=== PATIENT | male | born 1970 | race Caucasian/White ===

== ENCOUNTER 2022-09-02 17:27 | Emergency (ER) | payer BC, SELFPAY ==
--- NOTE | 2022-09-02 17:43 | ECG_ITS ---
Measurements Intervals [place] Rate: 87 P: 32 MA: 151 QRS: 58 QRSD: 102 T: 20 QT: 337 QTc: 407 Interpretive Statements SINUS RHYTHM NONSPECIFIC T-WAVE ABNORMALITY NO PREVIOUS ECG AVAILABLE FOR COMPARISON Electronically Signed On 09-05-2022 15:01:10 CARE MANAGEMENT COORDINATOR by Alex Kelly M.D.
[2022-09-02 17:46] VITALS: BP 189/121; PULSE 88; RESP 16; TEMP 37.2; O2SAT 100
[2022-09-02 17:50] VITALS: BP 191/111
--- NOTE | 2022-09-02 17:50 | ED.CHESTPAIN ---
HPI - Chest Pain General Chief Complaint: Chest Pain Stated Complaint: cp Time Seen by Provider: 09/02/22 17:45 Source: patient Mode of arrival: ambulatory Limitations: no limitations History of Present Illness HPI narrative: Mr. Treviño is a 52-year-old male patient presenting to clinic today with complaints of left upper sided chest pain since 4:00 a.m. this afternoon. He reports that the pain was initially sharp but now it is a dull aching pain to the left side of his chest. He reports that the pain is worse with inspiration. Blood pressure is elevated in the clinic. He also reports that he had some dizziness, headache, and felt as though he was going to pass out when this episode occurred. Blood pressure is 189/121 in the clinic and 191/110. He denies any radiation of the chest pain currently. He states he does get frequent intermittent chest pain at times over the last several years that have been sharp but have gone away within 30 seconds however this pain has been pretty constant. Related Data Home Medications Medication Instructions Recorded Confirmed No Home Medications 09/02/22 09/02/22 Allergies Allergy/AdvReac Type Severity Reaction Status Date / Time No Known Allergies Allergy Verified 09/02/22 17:53 Review of Systems Review of Systems: Pertinent positives per HPI. Patient denies any fever, chills, rash, cough, runny nose, sore throat, shortness of breath, palpitations, nausea, vomiting, diarrhea, constipation, abdominal pain, or any urinary issues. PMFSH Comments At the time of my signature, I reviewed and agree with the nursing past medical, surgical, social, and family history. There is no relevant family history pertinent to the patient complaint. Exam Narrative: General: Well-developed, obese, in no apparent distress Head: Normocephalic, atraumatic. Cardio: Regular rate and rhythm, s1 and s2 normal, no murmur appreciated. Resp: Clear to auscultation bilaterally, no rhonchi, rales, wheezing or rubs. Extremities: No deformity, no edema, no cyanosis, capillary refill less than 2 seconds, peripheral pulses palpable and strong. Integumentary: [place], warm, and dry, intact without lesion, no rashes. Course Course Emergency Course: Portions of this record may have been created with voice recognition software. Level of Care: Express Care Visit Vital Signs Vital signs: Vital Signs Temperature 37.2 C 12/09/22 17:46 Pulse Rate 88 09/02/22 17:46 Respiratory Rate 16 09/02/22 17:46 Blood Pressure 189/121 H 09/02/22 17:46 Pulse Oximetry 100 09/02/22 17:46 Oxygen Delivery Room Air 09/02/22 17:46 Temperature 37.2 C 09/02/22 17:46 Pulse Rate 88 09/02/22 17:46 Respiratory Rate 16 09/02/22 17:46 Blood Pressure 189/121 H 09/02/22 17:46 Pulse Oximetry 100 09/02/22 17:46 Oxygen Delivery Room Air 09/02/22 17:46 Vital signs reviewed Transfer Transfered to: [facility]: [facility] Transfer rationale: chest pain rule out-acute coronary syndrome-hypertension urgency Accepting physician: Be MCDOWELL-C Transfer comments: TRANSFER VIA ALS MDM - Chest Pain MDM Narrative Medical decision making narrative: At the time of visit patient is resting comfortably on the exam table. His EKG shows sinus rhythm at the 87 beats per minute with a nonspecific T-wave abnormality. He complains of headache, dizziness, and chest pain. Recommend transfer to the ED for further workup as his blood pressure is 189/121. Contacted Be MCDOWELL at [facility] and he accepts patient for transfer Differential Diagnosis Differential diagnosis: Likely atypical chest pain, st elevation myocardial infarction, costochondritis, chest pain and other ( hypertension urgency) ECG Data EKG #1: Attestation: I personally reviewed and interpreted this ECG as follows: ECG completion date: 09/02/22 ECG completion time: 17:43 Prior ECG tracings: not availa
== END 2022-09-02 17:57 | disposition short-term general hospital (02) ==
PROVIDERS: Emergency Provider Nurse Practitioner Family
DX: I16.0 Hypertensive urgency (principal); R07.9 Chest pain, unspecified; R42 Dizziness and giddiness; R51.9 Headache, unspecified
CPT/HCPCS: 93005; 99205; G0463

== ENCOUNTER 2022-09-02 18:13 | Emergency (ER) | payer BC, SELFPAY ==
[2022-09-02] VITALS (24 sets, daily range): BP systolic 161–210; BP diastolic 102–164; PULSE 67–88; RESP 12–26; TEMP 36.9; O2SAT 93–100
--- NOTE | ~2022-09-02 | XR_ITS ---
EXAMINATION: XR chest 2V 09/02/2022 18:49 INDICATION: Chest pain PROCEDURE: 2 view chest COMPARISON: No prior studies for comparison. FINDINGS: The lungs are clear. The cardiomediastinal silhouette is within normal limits. There are no pleural effusions. There is no pneumothorax suspected. IMPRESSION: 1: NO ACUTE CARDIOPULMONARY DISEASE. Reviewed, dictated and finalized at location A. CTION COORDINATION POWER ENGINEER
--- NOTE | ~2022-09-02 | CT_ITS ---
EXAMINATION: CT brain wo con DATE: 09/02/2022 20:03 INDICATION: Markedly elevated blood pressure. TECHNIQUE: Computed tomography (CT) of the head was performed without intravenous contrast. The dose- length product was 681.00 mGy-cm. Automated exposure control and iterative reconstruction technique w ere employed. COMPARISON: None FINDINGS: There is a hyperdense left frontal lobe mass measuring 2.5 x 2.1 x 2.3 cm. There is periphe ral calcifications with surrounding vasogenic edema. There is midline shift measuring 2-3 mm. No vent riculomegaly. Basilar cisterns are patent. No acute hemorrhage. Paranasal sinuses and mastoids are pn eumatized. IMPRESSION: 1. Abnormal left frontal lobe mass measuring 2.5 cm which is hyperdense with peripheral calcification , possibly extra-axial. Differential diagnosis includes atypical meningioma, glioma, lymphoma and met astatic disease. Recommend follow-up clinical evaluation with MRI with contrast. There is surrounding vasogenic edema with midline shift to the right measuring 2-3 mm. Reviewed, dictated and finalized at location A. T SUPERINTENDENT CAUSTIC CRESYLATE IMPRESSION: 1. Abnormal left frontal lobe mass measuring 2.5 cm which is hyperdense with pe ripheral calcification, possibly extra-axial. Differential diagnosis includes a typical meningioma, glioma, lymphoma and metastatic disease. Recommend follow-u p clinical evaluation with MRI with contrast. There is surrounding vasogenic ed renu with midline shift to the right measuring 2-3 mm.
--- NOTE | ~2022-09-02 | CT_ITS ---
EXAMINATION: CTA chest DATE: 09/02/2022 20:23 [employer] INDICATION: Elevated blood pressure. Chest pain. Pulse differential. TECHNIQUE: Computed tomographic angiography (CTA) of the chest was performed with 100 mL Omnipaque-35 0 intravenous contrast. The dose-length product was 769.44 mGy-cm. Maximum intensity projection 3D-re constructions of the aorta and other arteries were constructed by the technologist on a separate work station. COMPARISON: None. FINDINGS: Aorta is within normal limits without evidence for aneurysm or dissection. No significant p leural or pericardial effusion. No thoracic lymphadenopathy. Thyroid gland is normal. There is a 3 mm pleural-based left lower lobe nodule, likely benign. No focal airspace consolidation. No endobronchi al lesions. No pneumothorax. There are bilateral adrenal nodules, most likely benign adenomas. There is a complex heterogeneous 2 cm right renal mass. There is a hyperdense lesion posterior margin of th e upper aspect of the right kidney measuring 3.2 cm, nonspecific. There are gallstones. Fatty infiltr ation of the liver. IMPRESSION: 1. No significant vascular abnormality identified. 2: Complex 2 cm right renal mass which appears to contain macroscopic fat, possibly benign renal ang iomyolipoma. 3: Hyperdense right renal lesion measuring 3.2 cm most likely hyperdense proteinaceous or hemorrhagi c cyst. Recommend follow-up evaluation with MRI with/without contrast. 4: Multiple small low-density masses of the adrenal glands, most likely benign adenomas. This would also be better evaluated with MRI. Reviewed, dictated and finalized at location A. TH SCIENCES DEAN IMPRESSION: 1. No significant vascular abnormality identified. 2: Complex 2 cm right renal mass which appears to contain macroscopic fat, pos sibly benign renal angiomyolipoma. 3: Hyperdense right renal lesion measuring 3.2 cm most likely hyperdense prote inaceous or hemorrhagic cyst. Recommend follow-up evaluation with MRI with/with out contrast. 4: Multiple small low-density masses of the adrenal glands, most likely benign adenomas. This would also be better evaluated with MRI.
--- NOTE | 2022-09-02 18:20 | ECG_ITS ---
Measurements Intervals [place] Rate: 76 P: 19 UT: 163 QRS: 42 QRSD: 95 T: 19 QT: 345 QTc: 390 Interpretive Statements SINUS RHYTHM NORMAL ECG NO PREVIOUS ECG AVAILABLE FOR COMPARISON Electronically Signed On 09-03-2022 8:32:13 KITCHEN CHEF by Alex Kelly M.D.
[2022-09-02 18:37] LABS: Basophils Absolute Auto 0.1 K/mm3 (0.0-0.1); Basophils Percent Auto 0.9 % (0.2-1.2); Eosinophils Absolute Auto 0.2 K/mm3 (0-0.3); Eosinophils Percent Auto 2.2 % (0-4.4); Hematocrit 43.4 % (42.0-52.0); Hemoglobin 15.7 g/dL (14.0-18.0); Immature Granulocyte Absolute 0.04 K/mm3 (0.00-0.031); Immature Granulocyte Percent A 0.5 % (0-0.5); Lymphocytes Absolute Auto 2.04 K/mm3 (0.9-3.2); Lymphocytes Percent Auto 25.2 % (18.3-44.2); Mean Corpuscular HGB Conc 36.2 g/dl (32-36); Mean Corpuscular Hemoglobin 32.5 pg (26-34); Mean Corpuscular Volume 89.9 fl (80-100); Mean Platelet Volume 9.1 fl (7.4-10.4); Monocytes Absolute Auto 0.7 K/mm3 (0.1-0.6); Monocytes Percent Auto 8.5 % (2.6-8.5); Neutrophils Absolute Auto 5.1 K/mm3 (1.3-6.7); Neutrophils Percent Auto 62.7 % (45.5-73.1); Platelet Count Result 232 k/mm3 (150-375); Red Blood Count 4.83 M/mm3 (4.6-6.20); White Blood Count 8.1 K/mm3 (4.5-10.0)
[2022-09-02 18:47] LABS: Partial Thromboplastin Time 23.4 SECONDS (22.3-36.8)
[2022-09-02 18:48] LABS: Alanine Aminotransferase 22 U/L (6-50); Albumin Level 4.5 g/dL (3.5-5.1); Alkaline Phosphatase 115 U/L (38-126); Anion Gap 6 mmol/L (8-16); Aspartate Amino Transferase 24 U/L (17-59); Bilirubin,Total 1.1 mg/dL (0.2-1.3); Blood Urea Nitrogen 17 mg/dL (9-20); Calcium 8.7 mg/dL (8.4-10.2); Carbon Dioxide 31 mmol/L (22-30); Chloride 104 mmol/L (98-107); Estimated CRCL calculation 70 ml/min; Estimated Glomerular Filt Rate > 60; Glucose 97 mg/dL (65-110); Lipase 251 U/L (23-300); Potassium 3.4 mmol/L (3.4-5.0); Prothrombin Time 12.7 Seconds (11.1-14.7); Sodium 141 mmol/L (137-145)
[2022-09-02 18:59] LABS: Troponin I < 0.012 ng/mL (0.000-0.034)
--- NOTE | 2022-09-02 19:30 | ED.CHESTPAIN ---
HPI - Chest Pain General Chief Complaint: Chest Pain Stated Complaint: chest pain Time Seen by Provider: 09/02/22 19:20 History of Present Illness HPI narrative: Patient is a 52-year-old male here for evaluation of chest pain today. Patient reports two distinct twinges of discomfort in his chest lasting a second or 2 before resolving without intervention. Patient presented to an urgent care facility and was sent here because his blood pressure was markedly elevated. Patient tells me that his home readings on his mother's blood pressure cuff are frequently in the 200s systolic, however he has never seen a primary care doctor or been on antihypertensives. He denies any weakness, confusion, visual changes, nausea, vomiting, shortness of breath, leg swelling. Related Data Allergies Allergy/AdvReac Type Severity Reaction Status Date / Time No Known Allergies Allergy Verified 09/02/22 18:14 Review of Systems Review of Systems: Gen: Denies fevers or chills Eyes: Denies eye pain or visual change ENT: Denies congestion Respiratory: Denies shortness of breath or cough CV: Reports chest pain GI: Reports abdominal pain nausea, emesis or diarrhea denies burning, urgency, frequency or hematuria Musculoskeletal: Denies back pain or muscle pain Neuro: Denies numbness, tingling, weakness or focal weakness Skin: Denies rash 10 point review of systems negative, other than as per history of present illness, past medical history and other positives and review of systems Exam Narrative: APPEARANCE: Well appearing, no pain in distress, well-nourished. Head: Normocephalic and atraumatic. EYES: PERRLA/EOMI, conjunctivae clear NOSE: No nasal drainage EARS: External ear normal in appearance THROAT: Oropharynx is clear. Mucous membranes are moist. NECK: Supple. No adenopathy, no masses. RESPIRATORY: Airway patent, respirations nonlabored. Clear to auscultation bilaterally, no rales, rhonchi, wheezing. CARDIOVASCULAR: 2+ radial pulse on L, 1+ radial pulse on R. Regular rate and rhythm without murmurs, rubs, or gallops. ABDOMINAL: Normoactive bowel sounds. Soft, nontender, nondistended. No rebound tenderness or guarding. MUSCULOSKELETAL: Extremities are warm and well-perfused. Moves all extremities well. No edema. NEURO: Normal speech. No focal neurologic deficits. SKIN: Skin is warm and dry. No rashes. PSYCHIATRIC: Normal affect/mood. Course Vital Signs Vital signs: Vital Signs Temperature 98.4 F 09/02/22 18:16 Pulse Rate 83 09/02/22 18:16 Respiratory Rate 18 09/02/22 18:16 Pulse Oximetry 98 09/02/22 18:16 Temperature 98.4 F 09/02/22 18:16 Pulse Rate 70 09/02/22 21:31 Respiratory Rate 17 09/02/22 21:31 Blood Pressure 179/113 H 09/02/22 21:31 Pulse Oximetry 95 09/02/22 21:31 MDM - Chest Pain MDM Narrative Medical decision making narrative: 52-year-old male sent here from urgent care for evaluation of chest pain and markedly elevated blood pressures, sent for CT head and imaging of his chest. Patient's blood pressure is 210/129, vital signs otherwise normal. Noncontrasted brain CT shows evidence of a left frontal lobe hyperdense mass; differential including meningioma, glioma or metastatic disease. Recommended contrasted MRI study for follow-up. Spoke with Dr. Olivares, neurosurgery, who agrees with outpatient MRI and follow-up; this is likely an incidental finding and unrelated to his BP today. CTA of the chest shows numerous lesions on the right kidney; likely cysts and is also recommending follow-up abdominal MRI. Spoke with Dr. Carpio, primary care physician food production supervisor regarding patient, agrees with plan for starting lisinopril and outpatient abdominal MRI for further characterization of the renal lesions. Patient is stable for discharge at this time, symptoms of chest pain have resolved at time of my evaluation and he is requesting to go home. His blood pressure did improve after labetalol in the ED.
[2022-09-02 19:57] LABS: Troponin I < 0.012 ng/mL (0.000-0.034)
[2022-09-02] MEDS: LABETALOL HCL INJ 100 MG/20 ML VIAL 20 MG IV PUSH (20:37)
[2022-09-02 22:16] LABS: Appearance Urine Clear (Clear); Bilirubin Urine Negative (Negative); Blood Urine Negative (Negative); Color Urine Yellow (Yellow); Glucose Urine UA Negative (Negative); Ketones Urine Negative (Negative); Leukocyte Esterase Ur Negative LEU/UL (Negative); Nitrate Urine Negative (Negative); Protein Urine Trace mg/dL (Negative); Urobilinogen Urine 0.2 mg/dL (<2.0)
[2022-09-02 22:23] LABS: RBC Urine 0-2 /hpf (0-2); WBC Urine 0-3 /hpf
[2022-09-02 22:38] LABS: Add Urine Microscopic? YES
== END 2022-09-02 21:45 | disposition home or self-care (01) ==
PROVIDERS: General Practice; Emergency Provider Physician Assistant
DX: R07.9 Chest pain, unspecified (principal); G93.89 Other specified disorders of brain; N28.89 Other specified disorders of kidney and ureter; R03.0 Elevated blood-pressure reading, without diagnosis of hypertension
CPT/HCPCS: 36415; 70450; 71046; 71275; 80053; 81001; 83690; 84484; 85025; 85610; 85730; 93005; 96374; 99284; Q9967

== ENCOUNTER 2022-09-22 07:44 | Outpatient (CLI) | payer BC, SELFPAY ==
--- NOTE | ~2022-09-22 | MR_ITS ---
MRI of the brain Clinical History: Tumor Technique: Axial and sagittal T1-weighted images were acquired. These were followed by axial T2-weigh rivas, diffusion weighted, gradient, and FLAIR images. Following intravenous administration of 20 cc Mu ltiHance gadolinium, T1-weighted fat-sat imaging was performed in the axial, coronal, and sagittal pl anes. COMPARISON: Head CT dated 09/02/2022 Findings: There is an enhancing dural based mass at the left inferior frontal convexity, measuring 2. 5 x 1.8 x 2.3 cm in extent. This correlates with the lesion seen on recent CT scan, and is consistent with meningioma. There is mild surrounding vasogenic edema in the adjacent left frontal lobe. There is an additional tiny enhancing meningioma at the right frontal region (series 8 image 15). Minimal b ackground chronic white matter changes are noted. No intracranial hemorrhage identified. No acute inf arct seen. Ventricles and subarachnoid spaces are otherwise unremarkable. Orbits are unremarkable. There is mild bilateral ethmoid sinus disease. Remaining paranasal sinuses and mastoid air shows are clear. Major intracranial flow voids are intact. Sagittal midline structures are intact. IMPRESSION: 2.5 x 1.8 x 2.3 cm meningioma at the left frontal convexity, which correlates with recent CT finding. There is mild surrounding vasogenic edema. Additional tiny 4 mm right frontal meningioma. Reviewed, dictated and finalized at [facility]. [facility] HOST/HOSTESS IMPRESSION: 2.5 x 1.8 x 2.3 cm meningioma at the left frontal convexity, which correlates w ith recent CT finding. There is mild surrounding vasogenic edema. Additional tiny 4 mm right frontal meningioma.
== END 2022-09-22 07:45 | disposition home or self-care (01) ==
PROVIDERS: Visit Provider Neurological Surgery
DX: G93.89 Other specified disorders of brain (principal)
CPT/HCPCS: 70553; A9577

== ENCOUNTER 2022-10-18 10:33 | Emergency (ER) | payer BC, SELFPAY ==
[2022-10-18] VITALS (24 sets, daily range): BP systolic 180–219; BP diastolic 108–124; PULSE 66–83; RESP 13–24; TEMP 36.5; O2SAT 93–100
--- NOTE | 2022-10-18 12:24 | ED.RECABL ---
HPI - Recheck/Abnormal Lab/Rx General Chief Complaint: Recheck/Abnormal Lab/Rx Stated Complaint: high BP Time Seen by Provider: 10/18/22 12:06 History of Present Illness HPI narrative: Patient is a 52-year-old male with a history of hypertension, anxiety presenting with high blood pressure. Patient states that he went to his PCP this morning and was found to have blood pressure with systolics over 200. He was advised by the GUIDANCE DIRECTOR to come to the ER to have it lowered. States that he did not take his morning medications. He states that he feels fantastic. He denies any complaints whatsoever. No headache, numbness or weakness, vision changes, chest pain, shortness of breath, nausea or vomiting, abdominal pain, leg swelling. Related Data Home Medications Medication Instructions Recorded Confirmed alprazolam 0.25 mg tablet 0.25 mg PO BID PRN Anxiety 10/18/22 amlodipine 2.5 mg tablet 2.5 mg PO DAILY 10/18/22 fluoxetine 20 mg capsule 20 mg PO DAILY 10/18/22 losartan 100 mg tablet 100 mg PO DAILY 10/18/22 lovastatin 20 mg tablet 20 mg PO QPM 10/18/22 Allergies Allergy/AdvReac Type Severity Reaction Status Date / Time No Known Allergies Allergy Verified 10/18/22 10:39 Review of Systems Review of Systems: All systems reviewed & are unremarkable except as noted in HPI and below PMFSH Past Medical History Medical History HTN (hypertension) Surgical History Surgical History No pertinent past surgical history Family History Family History Other Diabetes mellitus Heart disease Hypertension Social History Social History Smoking status: Never smoker Alcohol intake: never Substance use: never Substance use type: does not use Lack of Transportation: No Lack of Food: Never True Current Housing: I Have Housing Concerned About Future Housing: No Difficulty Paying Gas/Electric Bills: No Difficulty Paying for Meds: No Currently Unemployed: No Education: Decline to Answer Difficulty w/ Childcare or Family Care: No Exam Narrative: GENERAL: Well-appearing, well-nourished, and in no acute distress. HEAD: Normocephalic, atraumatic. EYES: PERRLA and EOMI. ENT: Nares clear, no rhinorrhea or epistaxis. Mucous membranes moist. NECK: Supple. CHEST: Clear to auscultation. No respiratory distress. HEART: Regular rate and rhythm. No murmur heard. Normal peripheral pulses. ABDOMEN: Soft, nontender, nondistended, normal active bowel sounds. EXTREMITIES: Normal range of motion. No edema. SKIN: Warm, dry, no rash. NEURO: No focal deficits. Alert and oriented x3. PSYCH: Normal mood and affect. Course Vital Signs Vital signs: Vital Signs Temperature 97.7 F 10/18/22 10:34 Pulse Rate 74 10/18/22 10:34 Respiratory Rate 18 10/18/22 10:34 Blood Pressure 210/108 H 10/18/22 10:34 Pulse Oximetry 97 10/18/22 10:34 Oxygen Delivery Room Air 10/18/22 10:34 Temperature 97.7 F 10/18/22 10:34 Pulse Rate 83 10/18/22 14:01 Respiratory Rate 22 H 10/18/22 14:01 Blood Pressure 207/120 H 10/18/22 14:01 Pulse Oximetry 95 10/18/22 14:01 Oxygen Delivery Room Air 10/18/22 10:34 MDM - Recheck/Abnormal Lab/Rx MDM Narrative Medical decision making narrative: Patient is a 52-year-old male presenting with asymptomatic hypertension from his PCPs office. Patient is hypertensive in the 200s over 100s. Vitals otherwise within normal limits. Patient denies any complaints whatsoever. He states that he feels fantastic. It appears that his PCP increased his antihypertensives today and patient states that he has not taken any of his antihypertensive so far today. He was given his morning dose. He continues to be hypertensive and asymptomatic. Patient has
[2022-10-18] MEDS: LOSARTAN POTASSIUM 100 MG TABLET PO (12:51)
[2022-10-18] MEDS: amLODIPine BESYLATE 2.5 MG TABLET PO (12:51)
== END 2022-10-18 14:25 | disposition home or self-care (01) ==
PROVIDERS: Emergency Provider Emergency Medicine; PCP Family Medicine
DX: I10 Essential (primary) hypertension (principal)
CPT/HCPCS: 99283; A9270

== ENCOUNTER 2022-12-25 10:24 | Outpatient (CLI) | payer BC, SELFPAY ==
--- NOTE | ~2022-12-25 | MR_ITS ---
EXAMINATION: MR brain/brain stem wo/w con DATE: 12/25/2022 11:04 INDICATION: Brain mass. TECHNIQUE: Magnetic resonance imaging (MRI) of the brain and brainstem was performed without and with 19 mL MultiHance intravenous contrast. COMPARISON: Brain MRI 09/22/2022, head CT 09/02/2022 FINDINGS: There is no acute ischemic infarct or acute hemorrhage. In the left frontal temporal region , there is a 2.7 x 2.4 x 2.3 cm enhancing extra-axial mass with dural tails. Anterior to right fronta l lobe, there is a 7 mm enhancing extra-axial mass. At the anterior rim of the sella, there is an 8 m m enhancing extra-axial mass. Inferior to right frontal lobe, there is a 5 mm enhancing extra-axial m ass. Inferior to the frontal lobes at the midline, there is a 4 mm enhancing extra-axial mass. These findings are consistent with meningiomas. There is vasogenic edema in left frontal lobe adjacent to t he mass. There are scattered areas of nonspecific increased T2-weighted signal intensity in the cereb ral white matter and midbrain, which is within normal limits for the patient's age. There is a small old infarct in right cerebellum. There is an old lacunar infarct in right thalamus. The ventricles a re normal in size. The orbits are normal. There is mild mucosal thickening in the paranasal sinuses. The mastoid air cells are normal. IMPRESSION: 1. Five enhancing extra-axial masses measuring up to 2.7 cm, stable from 09/22/2022, consistent with meningiomas. 2. 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 Reviewed, dictated and finalized at location A. IMPRESSION: 1. Five enhancing extra-axial masses measuring up to 2.7 cm, stable from 2021, consistent with meningiomas. 2. 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
== END 2022-12-25 10:25 | disposition home or self-care (01) ==
PROVIDERS: PCP Family Medicine; Visit Provider Neurological Surgery
DX: G93.89 Other specified disorders of brain (principal); R22.0 Localized swelling, mass and lump, head
CPT/HCPCS: 70553; A9577

== ENCOUNTER 2023-03-14 11:27 | Emergency (ER) | payer BC, SELFPAY ==
[2023-03-14 11:40] VITALS: BP 146/89; PULSE 71; RESP 16; TEMP 36.1; O2SAT 99
[2023-03-14 11:42] VITALS: BP 146/89; PULSE 71; RESP 16; TEMP 36.1; O2SAT 99
--- NOTE | 2023-03-14 11:59 | ED.BACK ---
HPI - Back Pain/Injury General Chief Complaint: Extremity Injury, Lower Stated Complaint: Right Leg Pain Time Seen by Provider: 03/14/23 11:53 Source: patient and RN notes reviewed Mode of arrival: ambulatory Limitations: no limitations History of Present Illness HPI Narrative: 52-year-old male presents concern for a tingling, numbing sensation on his right thigh, he reports sometimes he feels like it is being shocked. He denies rash, blisters, redness, warmth, injury. He reports chronic low back pain. He reports pain constant, is worse with weight-bearing. He denies weakness in any extremity, perianal anesthesia, loss of bowel or bladder function, abdominal pain. MD elicited complaint: back pain Related Data Home Medications Medication Instructions Recorded Confirmed alprazolam 0.25 mg tablet 0.25 mg PO BID PRN Anxiety 10/18/22 amlodipine 2.5 mg tablet 2.5 mg PO DAILY 10/18/22 fluoxetine 20 mg capsule 20 mg PO DAILY 10/18/22 losartan 100 mg tablet 100 mg PO DAILY 10/18/22 lovastatin 20 mg tablet 20 mg PO QPM 10/18/22 clonidine HCl 0.1 mg tablet mg 03/14/23 Allergies Allergy/AdvReac Type Severity Reaction Status Date / Time No Known Allergies Allergy Verified 03/14/23 11:41 Review of Systems Review of Systems: CONSTITUTIONAL: Denies malaise, chills, sweats, or fever. CARDIOVASCULAR: Denies chest pain, palpitations, or edema. RESPIRATORY: Denies cough or dyspnea. GASTROINTESTINAL: Denies abdominal pain, nausea, vomiting, diarrhea, loss of bowel function GENITOURINARY: Denies dysuria, hematuria, frequency, loss of bladder function. SKIN: Denies rash or itching. MUSCULOSKELETAL: Reports chronic low back pain, reports numbness, tingling sensation to the right thigh NEUROLOGIC: Denies numbness, weakness, or headache. All systems reviewed & are unremarkable except as noted in HPI and below PMFSH Past Medical History Medical History HTN (hypertension) Surgical History Surgical History No pertinent past surgical history Family History Family History Other Diabetes mellitus Heart disease Hypertension Social History Social History Smoking status: Never smoker Alcohol intake: never Substance use: never Substance use type: does not use Lack of Transportation: No Lack of Food: Never True Current Housing: I Have Housing Concerned About Future Housing: No Difficulty Paying Gas/Electric Bills: No Difficulty Paying for Meds: No Currently Unemployed: No Education: Decline to Answer Difficulty w/ Childcare or Family Care: No Comments At time of signature, agree with nursing past medical, surgical, social and family history. There is no relevant family history pertinent to the presenting complaint Exam Narrative: GENERAL: Well-appearing, well-nourished, and in no acute distress. HEAD: Normocephalic, atraumatic. EYES: PERRLA and EOMI. NECK: Supple. No lymphadenopathy. CHEST: Clear to auscultation. No respiratory distress. HEART: Regular rate and rhythm. Distal pulses palpable and equal, cap refill <3 seconds ABDOMEN: Soft, nontender, nondistended, normal active bowel sounds, no palpable or pulsatile masses. No CVA tenderness MUSCULOSKELETAL: Normal range of motion and strength in all extremities; 5/5 strength with hip flexion and extension, dorsiflexion and extension, knee flexion and extension, plantar flexion and extension. Normal sensation in dermatomal distributions with sensitivity to light touch and pain. No midline back tenderness to palpation. No paraspinal tenderness. Transfers from lying to sitting to standing. SKIN: Warm, dry, no rash. No ecchymosis, erythema, open wounds to back or right leg. NEURO: No focal deficits. Alert and oriented x3. Ref
== END 2023-03-14 12:05 | disposition home or self-care (01) ==
PROVIDERS: Emergency Provider Nurse Practitioner; PCP Family Medicine
DX: M54.31 Sciatica, right side (principal); I10 Essential (primary) hypertension
CPT/HCPCS: 99213; G0463

== ENCOUNTER 2023-12-23 11:38 | Emergency (ER) | payer BC, SELFPAY ==
[2023-12-23 11:54] VITALS: BP 178/106; PULSE 94; RESP 16; TEMP 36.9; O2SAT 98
--- NOTE | 2023-12-23 12:00 | ED.DENTAL ---
HPI - Dental/Oral General Chief complaint: Dental/Oral Stated complaint: Dental Pain Source: patient Mode of arrival: ambulatory History of Present Illness HPI Narrative: 53-year-old male presented for complaint of right lower dental pain and swelling over the past week. He endorses this is a broken tooth, and his cap fell off about 2 weeks ago. Taking ibuprofen and anbeson for pain. Plans to f/u with dentist this week. Did not take BP meds yet today. MD Complaint: tooth pain Related Data Home Medications Medication Instructions Recorded Confirmed alprazolam 0.25 mg tablet 0.25 mg PO BID PRN Anxiety 10/18/22 12/23/23 amlodipine 2.5 mg tablet 2.5 mg PO DAILY 10/18/22 12/23/23 fluoxetine 20 mg capsule 20 mg PO DAILY 10/18/22 12/23/23 losartan 100 mg tablet 100 mg PO DAILY 10/18/22 12/23/23 lovastatin 20 mg tablet 20 mg PO QPM 10/18/22 12/23/23 Allergies Allergy/AdvReac Type Severity Reaction Status Date / Time No Known Allergies Allergy Verified 12/23/23 11:42 Review of Systems Review of Systems: CONSTITUTIONAL: Denies body aches, fever, chills ENT: Denies rhinorrhea, congestion, sore throat, or otalgia. Reports dental pain CARDIOVASCULAR: Denies chest pain, palpitations RESPIRATORY: Denies cough or dyspnea. SKIN: Denies rash, itching, or wounds. MUSCULOSKELETAL: Denies myalgia. NEUROLOGIC: Denies headache, numbness, tingling, or weakness. [facility] Past Medical History Medical History HTN (hypertension) Surgical History Surgical History No pertinent past surgical history Family History Family History Other Diabetes mellitus Heart disease Hypertension Social History Social History Smoking status: Never smoker Alcohol intake: never Substance use: never Substance use type: does not use Lack of Transportation: No Lack of Food: Never True Current Housing: I Have Housing Concerned About Future Housing: No Difficulty Paying Gas/Electric Bills: No Difficulty Paying for Meds: No Currently Unemployed: No Education: Decline to Answer Difficulty w/ Childcare or Family Care: No Comments At time of signature, I have reviewed and agree with nursing past medical, surgical, social and family history unless otherwise noted. Please see nursing chart for further information. There is no relevant family history pertinent to the presenting complaint Exam Narrative: GENERAL: Appears in mild pain; no acute distress. HEAD: Normocephalic, atraumatic. EYES: EOMI. No redness or drainage. Conjunctivae normal. ENT: Dental pain location of #29, broken tooth with mild swelling and erythema, no drainage; Broken teeth and poor dentition throughout. Mucous membranes pink and moist. TMs normal bilaterally. Throat normal. Uvula midline. No dysphagia, odynophagia, dysphonia, or dyspnea. No uvular deviation or soft palate edema. NECK: Normal AROM. No lymphadenopathy. no induration below mandible, no neck pain. CHEST: No respiratory distress. Clear to auscultation. HEART: Regular rate and rhythm. No murmur appreciated. SKIN: Warm, dry, no rash. Normal skin turgor. NEURO: No focal deficits. Alert and oriented x3. Gait steady. Course Course Emergency Course: Patient is aware of diagnosis, understands and agrees to treatment plan. Anticipatory guidance given. Patient agrees to follow-up as directed and is aware of reasons to seek care at the emergency department. Portions of this record may have been created with voice recognition software Level of Care: Express Care Visit Vital Signs Vital signs: Vital Signs Temperature 98.4 F 12/23/23 11:54 Pulse Rate 94 12/23/23 11:54 Respiratory Rate 16 12/23/23 11:54 Blood Pressure 178/106 H 12/23/23 11:54
== END 2023-12-23 12:15 | disposition home or self-care (01) ==
PROVIDERS: Emergency Provider Nurse Practitioner Family; PCP Family Medicine
DX: K04.7 Periapical abscess without sinus (principal); I10 Essential (primary) hypertension
CPT/HCPCS: 99213; G0463

== ENCOUNTER 2024-11-02 08:47 | Emergency (ER) | payer SELFPAY ==
--- OUTSIDE RECORDS SUMMARY | 2024-11-02 08:49 | XMS_ITS | Clinical Summary ---
Author Organization [facility] Address [address] [place] [address] Phone Care Team Providers Care Forest Firefighter Name Role Phone Unavailable Primary Care Provider Unavailabl e Allergies No known active allergies Medications levoFLOXacin (LEVAQUIN) 750 mg tablet Take 1 Tablet (750 mg) by mouth daily. 10 Tablet 07/11/2018 Active HYDROcodone-qing taminophen (NORCO) 7.5-325 mg Tablet Take 1 Tablet by mouth every 6 hours as needed for Pain. Max Daily Amount: 4 Tablets 15 Tablet 07/11/2018 Active Active Problems Problem Noted Date Diagnosed Date Testicular pain 07/10/2018 Immunizations Immunization Administration Dates Next Due Influenza Seasonal Unspecified Formulation IM Family History Relation Name Status Comments Mother Alive Social History Tobacco Use Types Packs/Day Years Used Date Smoking Tobacco: Never Smokeless Tobacco: Never Alcohol Use Standard Drinks/Week Comments No 0 (1 standard drink = 0.6 oz pur e alcohol) Sex and Gender Information Value Date Recorded Sex Assigned at Not on file Legal Sex Male 11:51 AM CDT Gender Identity Not on file Sexual Orientation Not on file Last Filed Vital Signs Vital Sign Reading Time Taken Comments Blood Pressure 132/86 07/11/2018 11:03 AM CDT Pulse 66 07/11/2018 11:03 AM CDT Temperature 36.2 C (97.2 F) 07/11/2018 11:03 AM CDT Respiratory Rate 18 07/11/2018 11:03 AM CDT Oxygen Saturation 98% 07/11/2018 11:03 AM CDT Inhaled Oxygen Concentration - - Weight 90 kg (198 lb 6.4 oz) 07/10/2018 4:40 PM CDT Height 167.6 cm (5' 6 ) 07/10/2018 2:15 PM CDT Body Mass Index 32.02 07/10/2018 2:15 PM CDT Plan of Treatment Health Maintenance Due Date Last Done Comments HEPATITIS B VACCINES (1 of 3 - 19+ 3-dose series) 1989 COLORECTAL SCREENING 2015 Colorectal Cancer Screening 2015 FIT-DNA Q 3 years 2015 FIT/FOBT Q 1 year 2015 Flex Sig/CT Colonography Q 5 years 2015 ZOSTER VACCINE (1 of 2) 2020 DTAP/TDAP/TD VACCINES (2 - T d or Tdap) 03/23/2023 03/23/2013, 10/14/2002 INFLUENZA VACCINE (#1) 2024 07/06/2018 PNEUMOCOCCAL VACCINE 0-64 YEARS Aged Out No longer eligible b ased on patient's age to complete this topic [place] [address] [place] [address] AND BLUE [facility] Member Subscriber Plan / Payer (Ef fective 2015-Present) Name:Vivek Treviño Relation to Subscriber:Self Name:Vivek Treviño Payer ID:Not on file Type:[employer] [place] Address: [place] [phone] Advance Directives For more information, please contact: [phone] * Full Code (Latest Code Status on File) Date Activated Date Inactivated Comments 07/10/2018 3:31 PM 07/11/2018 3:34 PM
--- OUTSIDE RECORDS SUMMARY | 2024-11-02 08:49 | XMS_ITS | Clinical Summary ---
Author Organization [employer] [facility] Address [address] Brown: [place] [address] Care Team Providers Care Animal Nursery Worker Name Role Phone [facility] Primary Care Provid er Allergies No known active allergies Active Problems Problem Noted Date Diagnosed Date Poison monica dermatitis 06/14/2014 Migraine 04/03/2010 Immunizations Immunization Administration Dates Next Due (ADACEL/BOOSTRIX)(10 YR UP) TDAP VACCINE, 0.5ML, IM 03/23/2013 (TDVAX)(7 YRS UP) TETANUS AN D DIPHTHERIA TOXOIDS, ADSORBED (2 LF OF TETANUS TOXOID AND 2 LF OF DIPHTHERIA TOXOID), 0.5ML (PF), IM 10/14/2002 Family History Medical History Relation Name Comments Healthy Father does not know Asthma Mother smker Relation Name Status Comments Father Alive Mother Alive Social History Tobacco Use Types Packs/Day Years Used Date Smoking Tobacco: Never Smokeless Tobacco: Never Alcohol Use Standard Drinks/Week Comments No 0 (1 standard drink = 0.6 oz pur e alcohol) Sex and Gender Information Value Date Recorded Sex Assigned at Not on file 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 Gender Identity Not on file Sexual Orientation Not on file Last Filed Vital Signs Vital Sign Reading Time Taken Comments Blood Pressure 132/86 07/11/2018 11:03 AM CDT Pulse 66 07/11/2018 11:03 AM CDT Temperature 36.2 C (97.2 F) 07/11/2018 11:03 AM CDT Respiratory Rate 18 07/11/2018 11:03 AM CDT Oxygen Saturation - - Inhaled Oxygen Concentration - - Weight 90 [...] 03/23/2023 03/23/2013, 10/14/2002 INFLUENZA VACCINE (#1) 2024 PNEUMOCOCCAL VACCINE 0-64 YEARS Aged Out No longer eligible b ased on patient's age to complete this topic Care Teams Animal Nursery Worker Relationship Specialty Start Date End Date [facility] [address] [place] [id number] PCP - General 03/18/16
[2024-11-02 08:58] VITALS: BP 225/125; PULSE 84; RESP 16; TEMP 36.6; O2SAT 99
--- NOTE | 2024-11-02 09:19 | ED_ITS ---
HPI - General Adult General Chief complaint: Skin/Abscess/Foreign Body Stated complaint: mass on the back of the neck , pain Time Seen by Provider: 11/02/24 08:54 History of Present Illness HPI narrative: [age] old male presenting to the emergency department for evaluation for a worsening abscess on his posterior neck. Patient does have a history of a cyst at that site that is been intermittent over the last 15 years. Patient states over the last 2 weeks he has had increased swelling and discomfort at the posterior neck at the site of the cyst. Upon arrival emergency department patient does have an enlarged cyst with overlying erythema. Patient is also hypertensive. Patient denies any chest pain or shortness of breath. Patient states he is post be on the started but has not taken any of his blood pressure medications in approximately 3 months. Related Data Home Medications ?Medication ?Instructions ?Recorded ?Confirmed ?Last Taken ?Type alprazolam 0.25 mg tablet 0.25 mg PO BID PRN Anxiety 10/18/22 12/23/23 Unknown History amlodipine 2.5 mg tablet 2.5 mg PO DAILY 10/18/22 12/23/23 Unknown History fluoxetine 20 mg capsule 20 mg PO DAILY 10/18/22 12/23/23 Unknown History losartan 100 mg tablet 100 mg PO DAILY 10/18/22 12/23/23 Unknown History lovastatin 20 mg tablet 20 mg PO QPM 10/18/22 12/23/23 Unknown History Allergies Allergy/AdvReac Type Severity Reaction Status Date / Time No Known Allergies Allergy Verified 11/02/24 08:49 Review of Systems Review of Systems: All systems reviewed & are unremarkable except as noted in HPI and below PMFSH Past Medical History Medical History HTN (hypertension) Surgical History Surgical History No pertinent past surgical history Family History Family History Other Diabetes mellitus Heart disease Hypertension Social History Social History Smoking status: Never smoker Alcohol intake: never Substance use: never Substance use type: does not use Lack of Transportation: No Lack of Food: Never True Current Housing: I Have Housing Concerned About Future Housing: No Difficulty Paying Gas/Electric Bills: No Difficulty Paying for Meds: No Currently Unemployed: No Education: Decline to Answer Difficulty w/ Childcare or Family Care: No Exam Narrative: APPEARANCE: Well appearing, no pain, no distress, well-nourished. HEAD: normocephalic, atraumatic. EYES: PERRLA/EOMI, conjunctivae clear. NOSE: Normal no drainage EARS:TMS clear with good light reflex. THROAT: Pharynx clear, no exudate. NECK: Supple. No adenopathy, no masses. RESPIRATORY: Airway patent, respirations nonlabored. Clear to auscultation bilaterally, no rales, rhonchi, wheezing. CARDIOVASCULAR: Regular rate and rhythm without murmurs rubs or gallops. ABDOMINAL: Soft, nontender, nondistended, normal bowel sounds MUSCULOSKELETAL: Moves all extremities. Strength/ROM intact, No edema, No calf t enderness. NEURO: Alert. Cranial nerves II through XII intact. Good gait. Good coordination SKIN: Abscess at posterior neck with overlying erythema Course Vital Signs Vital signs: Vital Signs Temperature 98 F 11/02/24 08:58 Pulse Rate 84 11/02/24 08:58 Respiratory Rate 16 11/02/24 08:58 Blood Pressure 225/125 H 11/02/24 08:58 Pulse Oximetry 99 11/02/24 08:58 Temperature 98 F 11/02/24 08:58 Pulse Rate 84 11/02/24 08:58 Respiratory Rate 16 11/02/24 08:58 Blood Pressure 225/125 H 11/02/24 08:58 Pulse Oximetry 99 11/02/24 08:58 Procedures Abscess I/D neck: Date of Incision: 11/02/24 Time of Incision: 09:23 Sedation/analgesia: none Local Anesthetic: lidocaine 1% Amount of anesthesia used (mL): 5 Technique: incised with #11 blade Amount of fluid expressed (mL): 5 Irrigation: Yes Packing used?: iodoform I&D Results: Pus and Other (Sebum) Complications: pain Medical Decision Making MDM Narrative Medical decision making narrative: 54-year-old male present to the emergency department for evaluation for worsening cyst at his posterior cervical spine. Ultrasound did confirm a cyst versus abscess. When cyst was drained there was a large amount of sebum and then there was also purulent discharge. Drain was placed and patient was started on antibiotics. Patient was encouraged of close follow-up with surgery. Vital Signs Vital Signs: Vital Signs Temperature 98 F 11/02/24 08:58 Pulse Rate 84 11/02/24 08:58 Respiratory Rate 16 11/02/24 08:58 Blood Pressure 225/125 H 11/02/24 08:58 Pulse Oximetry 99 11/02/24 08:58 Temperature 98 F 11/02/24 08:58 Pulse Rate 84 11/02/24 08:58 Respiratory Rate 16 11/02/24 08:58 Blood Pressure 225/125 H 11/02/24 08:58 Pulse Oximetry 99 11/02/24 08:58 Discharge Plan Discharge Clinical Impression: Abscess of skin or subcutaneous tissue, Hypertension Patient Disposition: Still a Patient Condition: Stable Instructions: Chronic Hypertension (DC), Abscess (ED) Additional Instructions: Antibiotic as directed until completed. Have close follow-up with surgery for a wound check. If you have any worsening symptoms then please call or return to the emergency department. You need to take your med blood pressure medication as directed. Patient Language: Yoruba Prescriptions: New clindamycin HCl [Cleocin HCl] 300 mg capsule 300 mg PO Q6H 7 Days Qty: 28 0RF No Action ibuprofen 800 mg tablet 800 mg PO TID PRN (Reason: pain) Qty: 15 0RF lidocaine HCl [Lidocaine Viscous] 2 % solution 1 applic mucous membrane TID PRN (Reason: pain) Qty: 100 0RF Rx Instructions: apply with cotton swab to site of pain amoxicillin-pot clavulanate 875-125 mg tablet 1 tablet PO Q12H 7 Days Qty: 14 0RF amlodipine 2.5 mg Tablet 2.5 mg PO DAILY alprazolam 0.25 mg Tablet 0.25 mg PO BID PRN (Reason: Anxiety) lovastatin 20 mg Tablet 20 mg PO QPM losartan 100 mg Tablet 100 mg PO DAILY fluoxetine 20 mg Capsule 20 mg PO DAILY Follow-up/Referrals: Jonathan Carpio MD [Physician] - Jony Sun MD [Physician] -
--- OUTSIDE RECORDS SUMMARY | 2024-11-02 09:22 | XMS_ITS | Clinical Summary ---
Author Organization [employer] [facility] Address [address] 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 [address] [place] [id number] PCP - General 03/18/16
--- OUTSIDE RECORDS SUMMARY | 2024-11-02 09:22 | XMS_ITS | Clinical Summary ---
Author Organization [facility] Address [address] [place] [address] Phone Care Team Providers Care Fishing Tool Supervisor Name Role Phone Unavailable Primary Care Provider [...] patient's age to complete this topic [place] [address] AND BLUE [facility] Member Subscriber Plan / Payer (Ef fective 2015-Present) Name:Vivek Treviño Relation to Subscriber:Self Name:Vivek Treviño Payer ID:Not on file Type:[employer] Address: [place] [phone] Advance Directives For more information, please contact: [phone] * Full Code (Latest Code Status on File) Date Activated Date Inactivated Comments 07/10/2018 3:31 PM 07/11/2018 3:34 PM
[2024-11-02] MEDS: LOSARTAN POTASSIUM 100 MG TABLET PO (10:27)
--- NOTE | 2024-11-02 11:09 | PC.NURSE ---
Pt. hypertensive at time of d/c. Asymptomatic. Pt. refused IV for IV intervention. MD Luna notified. Pt. states he has his antihypertensive medication at home that he will take. Plan ok with .
[2024-11-02] MEDS: CLINDAMYCIN HCL 150 MG CAP 300 MG PO (11:11)
== END 2024-11-02 11:20 | disposition home or self-care (01) ==
PROVIDERS: Emergency Provider Emergency Medicine
DX: L02.11 Cutaneous abscess of neck (principal); I10 Essential (primary) hypertension; T46.5X6A Underdosing of other antihypertensive drugs, initial encounter; Z79.899 Other long term (current) drug therapy
CPT/HCPCS: 10061; 99283; A9270